=== PATIENT | male | born 1970 | race Caucasian/White ===

== ENCOUNTER 2018-12-03 16:45 | Emergency (ER) | payer BC ==
[2018-12-03] MEDS ORDERED: DIPH,PERTUS(ACELL)TETVAC-LF 0.5 ML VIAL IM ONE (17:01)
[2018-12-03 17:02] VITALS: RESP 18; TEMP 98.2
[2018-12-03] MEDS ORDERED: LIDOCAINE 1% INJ 10MG/ML (20 ML MDV) SQ ONE (17:14)
[2018-12-03] MEDS ORDERED: GELATIN SPONGE,ABSORB (LARGE) 1 EACH SPONGE TOPICAL STA (17:36)
--- NOTE | 2018-12-03 18:00 | XR ---
PROCEDURE: XR thumb LT - 3V DATE AND TIME: 12/03/2018 5:26 PM CLINICAL INDICATION: PHH; lac w saw, thumb TECHNIQUE: Department protocol COMPARISON: None FINDINGS: AP and oblique and lateral views of the left thumb were obtained. The lateral view is noted to be ove r-penetrated. There is soft tissue swelling. No radiopaque foreign body. No soft tissue emphysema. There is no fracture or malalignment. Subcentimeter subchondral well-demarcated cyst is noted, incidental finding IMPRESSION: Soft tissue swelling.
--- NOTE | 2018-12-03 18:23 | ED ---
General Adult HPI - General Chief complaint: Wound/Laceration Stated complaint: left thumb lac Time Seen by Provider: 12/03/18 17:00 Source: patient, RN notes reviewed Mode of arrival: ambulatory Limitations: no limitations - History of Present Illness Initial comments: 48-year-old male presents to the emergency cart for chief laceration to the left thumb. Patient was using a table saw prior to arrival and hit the finger pad of his left thumb. Denies any difficulty moving the left thumb. States it did stop bleeding. States his tetanus is not up-to-date. Denies any other injuries.Patient has no other complaints at this time including shortness of breath, chest pain, abdominal pain, nausea or vomiting, headache, or visual changes. - Related Data Previous Rx's Medication Instructions Recorded Cephalexin [Keflex] 500 mg PO Q6HR 3 Days #12 cap 12/03/18 Allergies Allergy/AdvReac Type Severity Reaction Status Date / Time Penicillins Allergy Anaphylaxis Verified 12/03/18 17:04 Review of Systems ROS Statement: Those systems with pertinent positive or pertinent negative responses have been documented in the HPI. ROS Other: All systems not noted in ROS Statement are negative. Past Medical History Past Medical History: No Reported History History of Any Multi-Drug Resistant Organisms: None Reported Additional Past Surgical History / Comment(s): hernia repair Past Psychological History: No Psychological Hx Reported Smoking Status: Never smoker Past Alcohol Use History: Occasional Past Drug Use History: None Reported General Exam Limitations: no limitations General appearance: alert, in no apparent distress Head exam: Present: atraumatic, normocephalic, normal inspection Eye exam: Present: normal appearance, PERRL, EOMI. Absent: scleral icterus, conjunctival injection, periorbital swelling ENT exam: Present: normal exam, mucous membranes moist Neck exam: Present: normal inspection, full ROM. Absent: tenderness, meningismus, lymphadenopathy Respiratory exam: Present: normal lung sounds bilaterally. Absent: respiratory distress, wheezes, rales, rhonchi, stridor Cardiovascular Exam: Present: regular rate, normal rhythm, normal heart sounds. Absent: systolic murmur, diastolic murmur, rubs, gallop, clicks Extremities exam: Present: full ROM (Full range of motion of the left thumb including MCP and IP joints.), normal capillary refill (Capillary refill less than 2 seconds, radial pulse 2+ the left upper extremity.), other (Patient does have a 3 cm x 1 cm abrasion / avulsion noted to the finger pad of the left thumb.). Absent: tenderness, pedal edema, joint swelling, calf tenderness Neurological exam: Present: alert, oriented X3, CN II-XII intact Psychiatric exam: Present: normal affect, normal mood Course Vital Signs 12/03/18 16:58 Temperature 98.2 F Pulse Rate 98 Respiratory 18 Rate Blood Pressure 136/89 O2 Sat by Pulse 98 Oximetry Procedures - Laceration Laceration #1 Consent Obtained: verbal consent Indication: laceration Site: other (Left thumb) Size (cm): 3 Description: avulsion, irregular Depth: simple, single layer Anesthetic Used: lidocaine 1% Anesthesia Technique: local infiltration Amount (mls): 2 Pre-repair: wound explored, irrigated extensively (With saline pressure irrigation) Type of Sutures: vicryl (Absorbable you have a fever during that) Size of Sutures: 5-0 Number of Sutures: 2 Technique: simple, interrupted Patient Tolerated Procedure: well, no complications Medical Decision Making - Medical Decision Making 48-year-old male presents to emergency department for chief laceration of left thumb with table saw. This is more of and a superficial avulsion/abrasion.Neurovascular status is intact. Full range of motion. X-ray shows soft tissue swelling with an incidental finding of a cyst noted, patient will follow-up about this. Wound was cleaned thoroughly with saline pressure irrigation. 2 absorbable sutures were applied to the deeper layer. Gelfoam was then applied superficially. Bleeding controlled. Patient given 3 days of Keflex as he is concerned for infection because his table saw was dirty. Patient will follow up with primary care in 1-2 days. Patient will return here if he has any worsening symptoms. Disposition Clinical Impression: Laceration Disposition: HOME SELF-CARE Condition: Good Instructions (If sedation given, give patient instructions): Laceration (ED), Care For Your Absorbable Stitches (ED) Additional Instructions: Please keep the area clean. Follow-up with primary care in 1-2 days. Return here to the emergency department if you have any worsening symptoms. Prescriptions: Cephalexin [Keflex] 500 mg PO Q6HR 3 Days #12 cap Is patient prescribed a controlled substance at d/c from ED?: No Referrals: Julianna Harper MD [REFERRING] - 1-2 days Time of Disposition: 18:21
[2018-12-03 18:32] VITALS: BP 126/75; PULSE 92
== END 2018-12-03 18:33 | disposition home or self-care (01) ==
LOC: EC 16:45
DX: S61.012A Laceration without foreign body of left thumb without damage to nail, initial encounter (principal); Z88.0 Allergy status to penicillin; Z23 Encounter for immunization; W31.2XXA Contact with powered woodworking and forming machines, initial encounter; Y93.89 Activity, other specified; Y92.002 Bathroom of unspecified non-institutional (private) residence as the place of occurrence of the external cause
CPT/HCPCS: 73140; 90715; 99283; 12002; 90471; J2001